=== PATIENT | female | born 1970 | race Caucasian/White ===

== ENCOUNTER → 2017-11-24 08:17 | Outpatient (CLI) | payer OTHER, SELFPAY ==
[2017-11-24 09:43] LABS: Estradiol 136.2 pg/mL; Free T3 2.6 pg/mL (2.18-3.98); T4 Free Direct 0.98 ng/dL (0.76-1.46); Thyroid Stim Hormone (TSH) 1.85 uIU/mL (0.358-3.74)
[2017-11-25 07:42] LABS: DHEA Sulfate 165.4 ug/dL (41.2-243.7)
[2017-11-26 09:38] LABS: Progesterone Level 8.61 ng/mL (See Comment)
== END ==
PROVIDERS: Visit Provider Specialist
DX: N95.1 Menopausal and female climacteric states (principal); E03.8 Other specified hypothyroidism; R53.81 Other malaise
CPT/HCPCS: 36415; 82627; 82670; 84144; 84403; 84439; 84443; 84481; 82626